=== PATIENT | male | born 1985 | race Two or more races ===

== ENCOUNTER 2018-09-05 01:49 | Emergency (ER) | payer BC, MEDICAID ==
[~2018-09-05] VITALS: Ht 180.3 cm; Wt 81.6 kg
[2018-09-05] MEDS ORDERED: HYDROMORPHONE 2 MG/1 ML DISP.SYRIN ONE (02:24)
[2018-09-05] MEDS ORDERED: ONDANSETRON 4 MG/2 ML VIAL ONE (02:24)
[2018-09-05] MEDS ORDERED: LIDOCAINE HCL 2% 20 ML VIAL TP ONE (02:30)
[2018-09-05] MEDS ORDERED: HYDROMORPHONE 1 MG/1 ML DISP.SYRIN IM ONE (02:30)
[2018-09-05] MEDS ORDERED: ONDANSETRON 4 MG/2 ML VIAL IM ONE (02:30)
--- NOTE | 2018-09-05 02:41 | NUR ---
Pt. ambulated into ED w/ c/o 04/09 pain to R groin, presents w/ 3cm red abscess to R groin x 2 days, no difficulty urinating, denies SOB/CP/STROUD/F/C/N/V/D,
--- NOTE | 2018-09-05 03:52 | NUR ---
Patient discharged to home in stable conditon. Written and verbal after care instructions given. Patient verbalizes understanding of instructions. Pt. d/c per MD order w/ prescription, d/c papers signed, all belongings w/ pt., ambulated off unit w/ steady gait, no acute distress,
== END 2018-09-05 03:54 | disposition home or self-care (01) ==
LOC: ER 01:53
DX: L02.415 Cutaneous abscess of right lower limb (principal); F17.200 Nicotine dependence, unspecified, uncomplicated; F11.10 Opioid abuse, uncomplicated; F14.10 Cocaine abuse, uncomplicated; F15.10 Other stimulant abuse, uncomplicated
CPT/HCPCS: 10060; 96372 ×2; 99283; J1170; J2405; A4663

== ENCOUNTER 2018-09-12 01:40 | Inpatient (IN) | payer BC, MEDICAID ==
[~2018-09-12] VITALS: Ht 180.3 cm; Wt 81.6 kg
--- NOTE | 2018-09-12 01:51 | NUR ---
Pt ambulated in ER with the c/o fever, generalized abdominal pain and headache x 3 days. Pt denies CP, SOB, N/V/D. VSS. Safe environment implemented.
--- NOTE | 2018-09-12 02:02 | NUR ---
Dr. Costa at bedside for MSE.
[2018-09-12] MEDS ORDERED: GENTAMICIN SULFATE INJ 80 MG in IV DEXTROSE 5% 100 ML IV ONE (02:15)
[2018-09-12] MEDS ORDERED: VANCOMYCIN IV 1,000 MG in IV DEXTROSE 5% 250 ML IV ONE (02:15)
[2018-09-12] MEDS ORDERED: DEXAMETHASONE SOD PHOSPHATE 4 MG INJ IV ONE (02:15)
[2018-09-12] MEDS ORDERED: DEXAMETHASONE SOD PHOSPHATE 10 MG INJ ONE (02:26)
[2018-09-12] MEDS ORDERED: GENTAMICIN SULFATE 80 MG/2 ML VIAL ONE ×2 (02:26→03:45)
[2018-09-12] MEDS ORDERED: VANCOMYCIN IV 200 ML ONE (02:27)
[2018-09-12] MEDS ORDERED: KETOROLAC TROMETHAMINE 15 MG INJ ONE (02:41)
[2018-09-12 02:45] LABS: CREATININE 1.7 mg/dL (0.6-1.3); POTASSIUM 4.2 mmol/L (3.5-5.1)
[2018-09-12] MEDS ORDERED: KETOROLAC TROMETHAMINE 15 MG INJ IVP ONE (02:45)
[2018-09-12 02:59] LABS: BILIRUBIN,DIRECT 0.1 mg/dL (0.0-0.2); BILIRUBIN,TOTAL 0.3 mg/dL (0.2-1.0); TOTAL PROTEIN, SERUM 7.9 g/dL (6.4-8.2)
[2018-09-12 03:00] LABS: BASOPHILS % (AUTO) 0.6 % (0.0-2.0); EOSINOPHILS # (AUTO) 0.2 K/uL (0.0-0.7); HEMATOCRIT 42.3 % (36.7-47.1); HEMOGLOBIN 14.8 g/dL (12.5-16.3); LYMPHOCYTES # (AUTO) 0.4 K/uL (20.0-40.0); MEAN CORPUSCULAR HEMOGLOBIN 27.9 uug (23.8-33.4); MEAN CORPUSCULAR HGB CONC 35 g/dL (32.5-36.3); MEAN CORPUSCULAR VOLUME 79.9 fL (73.0-96.2); MONOCYTES # (AUTO) 0.5 K/uL (2.0-10.0); MONOCYTES % (AUTO) 10.1 % (0.0-11.0); NEUTROPHILS # (AUTO) 4.3 K/uL (1.8-8.9); NEUTROPHILS % (AUTO) 79.3 % (38.5-71.5); PLATELET COUNT (AUTO) 123 K/uL (152-348); WHITE BLOOD COUNT (AUTO) 5.4 K/uL (3.6-10.2)
[2018-09-12 03:02] LABS: *BILIRUBIN,URIN NEGATIVE (NEGATIVE); *BLOOD, URINE NEGATIVE (NEGATIVE); *CLARITY,URINE CLEAR (CLEAR); *COLOR,URINE YELLOW (YELLOW); *KETONES,URINE 3+ (NEGATIVE); LEUKOCYTE ESTERASE ,URINE NEGATIVE (NEGATIVE); NITRITE, URINE NEGATIVE (NEGATIVE); UGLUCOSE NEGATIVE (NEGATIVE)
[2018-09-12 03:13] LABS: BACTERIA,URINE NONE SEEN /HPF (NONE SEEN); MUCUS,URINE FEW /LPF (0-FEW); SQUAMOUS EPITHELIAL CELL,UR FEW /HPF (NONE SEEN); WBC,URINE 0-3 /HPF (0-3)
--- NOTE | 2018-09-12 03:13 | NUR ---
Dr. Costa on phone with [facility] .
[2018-09-12] MEDS ORDERED: LEVOFLOXACIN 750 MG TABLET ONE (03:15)
[2018-09-12] MEDS ORDERED: LEVOFLOXACIN 750 MG TABLET PO ONE (03:15)
[2018-09-12] MEDS ORDERED: MAGNESIUM HYDROXIDE 30 ML LIQUID UDC PO PRN (03:30)
[2018-09-12] MEDS ORDERED: ONDANSETRON 4 MG/2 ML VIAL IV PRN (03:30)
[2018-09-12] MEDS ORDERED: ACETAMINOPHEN 325 MG TABLET PO PRN (03:30)
--- NOTE | 2018-09-12 03:55 | NUR ---
Receiving nurse informed of patient's sobriety of 70 days.
--- NOTE | 2018-09-12 03:55 | NUR ---
Report given to Meeta SAN
--- NOTE | 2018-09-12 04:05 | NUR ---
Pt. admitted to M/S , under care of Dr. Ivy Belongs List completed
[2018-09-12 05:00] VITALS: BP 124/65
[2018-09-12] MEDS ORDERED: SULF1TAB48 PO (05:37)
[2018-09-12] MEDS: PANTOPRAZOLE SODIUM 40 MG TABLET.DR PO SCH (06:44)
[2018-09-12] MEDS: HYDROCODONE/APAP 5-325MG TABLET PO PRN ×3 (06:45→21:04)
--- NOTE | 2018-09-12 06:56 | NUR ---
ADMITTED 33M. DX: FEBRILE ILLNESS. IV ON THE LEFT AC IS INTACT AND PATENT. PRN PAIN MEDICATIONS GIVEN AND TOLERATED WELL. NO SIGNS OF ACUTE DISTRESS. SAFETY MEASURES GIVEN.
--- NOTE | 2018-09-12 08:00 | NUR ---
Noted right groin wound with redness. Scant drainage of serous fluid. No odor noted. Offered to cover small wound -pt refused.
--- NOTE | 2018-09-12 08:00 | NUR ---
Pt is in no acute distress. Discussed plan of care with pt re: pain management, fall precaution. Call light is within reach.
[2018-09-12 11:16] VITALS: BP 124/66
[2018-09-12 12:17] LABS: CREATININE 1.9 mg/dL (0.6-1.3); POTASSIUM 5.2 mmol/L (3.5-5.1)
[2018-09-12] MEDS: NICOTINE 21 MG/24HR PATCH TD SCH (15:04)
[2018-09-12 15:24] VITALS: BP 134/81
[2018-09-12] MEDS: IV NS 1000 ML 1,000 ML IV PRN (17:25)
--- NOTE | 2018-09-12 18:53 | NUR ---
Pt has been afebrile throughout shift. Call light is within reach.
--- NOTE | 2018-09-12 19:25 | NUR ---
RECEIVED PT AWAKE. ALERT AND ORIENTEDX4. PT SHOWS NO SIGNS OF ACUTE DISTRESS. PT IV INTACT AND PATENT. PT AFEBRILE. CALL LIGHT WITHIN REACH. BED ALARM ON AND IN LOW POSITION. SAFETY AND COMFORT PROVIDED. WILL CONTINUE TO MONITOR.
[2018-09-12 20:05] VITALS: BP 128/80
--- NOTE | 2018-09-13 00:43 | NUR ---
CALLED DR CANE LOADER. PT REQUESTING FOR SLEEPING MEDICATION. DR. SAÚL LEMONSDERED AMBIEN 5MG ONCE. PT STABLE WITH NO ACUTE DISTRESS. WILL CONTINUE TO MONITOR.
[2018-09-13] MEDS ORDERED: ZOLPIDEM 5 MG TABLET PO ONE (00:45)
[2018-09-13 01:07] LABS: *BILIRUBIN,URIN NEGATIVE (NEGATIVE); *BLOOD, URINE NEGATIVE (NEGATIVE); *COLOR,URINE YELLOW (YELLOW); *KETONES,URINE TRACE (NEGATIVE); LEUKOCYTE ESTERASE ,URINE NEGATIVE (NEGATIVE); NITRITE, URINE NEGATIVE (NEGATIVE); PH,URINE 6.5 (5.0-8.0)
[2018-09-13 01:09] LABS: *CLARITY,URINE HAZY (CLEAR); UGLUCOSE 1+ (NEGATIVE)
[2018-09-13 01:20] LABS: BACTERIA,URINE NONE SEEN /HPF (NONE SEEN); RBC,URINE 0-3 /HPF (0-3); SQUAMOUS EPITHELIAL CELL,UR FEW /HPF (NONE SEEN); WBC,URINE 0-3 /HPF (0-3)
[2018-09-13 01:21] LABS: MUCUS,URINE FEW /LPF (0-FEW); TRANSITIONAL EPI CELLS,URINE FEW /LPF (NONE SEEN)
[2018-09-13 01:23] LABS: *CREATININE,URINE 182.1 mg/dL (30-125); *URINE TOTAL PROTEIN RANDOM 34.7 mg/dL (<150/24HR)
[2018-09-13 05:15] VITALS: BP 119/72
[2018-09-13 06:00] LABS: BASOPHILS % (AUTO) 0.5 % (0.0-2.0); EOSINOPHILS # (AUTO) 0.3 K/uL (0.0-0.7); EOSINOPHILS % (AUTO) 8.4 % (0.0-7.0); HEMATOCRIT 41.4 % (36.7-47.1); HEMOGLOBIN 14.3 g/dL (12.5-16.3); LYMPHOCYTES # (AUTO) 0.7 K/uL (20.0-40.0); LYMPHOCYTES % (AUTO) 22.2 % (20.5-51.5); MEAN CORPUSCULAR HEMOGLOBIN 27.9 uug (23.8-33.4); MEAN CORPUSCULAR HGB CONC 34 g/dL (32.5-36.3); MEAN CORPUSCULAR VOLUME 80.9 fL (73.0-96.2); MONOCYTES # (AUTO) 0.5 K/uL (2.0-10.0); MONOCYTES % (AUTO) 14.1 % (0.0-11.0); NEUTROPHILS # (AUTO) 1.8 K/uL (1.8-8.9); NEUTROPHILS % (AUTO) 54.8 % (38.5-71.5); PLATELET COUNT (AUTO) 111 K/uL (152-348); RED BLOOD CELL COUNT(AUTO) 5.11 MIL/uL (4.06-5.63)
[2018-09-13] MEDS ORDERED: LEVOFLOXACIN 750MG/D5W 750 MG in PREMIXED 1 EACH IV SCH (06:00)
[2018-09-13] MEDS: IV NS 1000 ML 1,000 ML IV PRN ×2 (06:05→08:39)
[2018-09-13 06:10] LABS: BILIRUBIN,TOTAL 0.2 mg/dL (0.2-1.0); CREATININE 1.4 mg/dL (0.6-1.3); MAGNESIUM 1.8 mg/dL (1.8-2.4); PHOSPHOROUS 3.1 mg/dL (2.5-4.9); POTASSIUM 4.3 mmol/L (3.5-5.1); TOTAL PROTEIN, SERUM 6.9 g/dL (6.4-8.2)
--- NOTE | 2018-09-13 06:16 | NUR ---
PT SLEPT INTERMITTENTLY. PT SHOWS NO ACUTE DISTRESS.IV INTACT AND PATENT.PT GIVEN NORCO FOR PAIN. PT TOLERATED IT WELL. PT AFEBRILE. PT VITAL SIGNS WITHIN NORMAL LIMIT. SAFETY AND COMFORT PROVIDED.WILL ENDORSE ACCORDINGLY TO INCOMING NURSE FOR CONTINUITY OF CARE.
[2018-09-13 06:35] LABS: URIC ACID 3.7 mg/dL (3.5-7.2)
[2018-09-13 06:37] LABS: WHITE BLOOD COUNT (AUTO) 3.3 K/uL (3.6-10.2)
[2018-09-13] MEDS: PANTOPRAZOLE SODIUM 40 MG TABLET.DR PO SCH (06:41)
--- NOTE | 2018-09-13 06:43 | NUR ---
PT REFUSED TO HAVE HIS IV FLUID BAG REPLACED FOR A NEW ONE. CHARGE NURSE AWARE. PT STABLE. SAFETY AND COMFORT PROVIDED. WILL ENDORSE ACCORDINGLY TO INCOMING NURSE FOR CONTINUITY OF CARE.
[2018-09-13 07:07] LABS: THYROID STIMULATING HORMONE 4.94 mIU/mL (0.358-3.740)
--- NOTE | 2018-09-13 08:40 | NUR ---
Patient due for New IV hydration bag, refused verbalized he does not need it.
[2018-09-13] MEDS: NICOTINE 21 MG/24HR PATCH TD SCH (08:52)
--- NOTE | 2018-09-13 08:52 | NUR ---
patient noted to have contraband items in room, cigarette fnp and 2 cigarettes, patient educated, removed items and placed in contraband, informed patient will be returned on discharge.
[2018-09-13 11:09] VITALS: BP 119/73
[2018-09-13 11:30] VITALS: BP 119/73
--- NOTE | 2018-09-13 11:42 | NUR ---
Notified Web Development Intern Oanh Fay, N.P. of patient refusal for IV hydration, no longer wants it refusing, per spinning bath person may discontinue IV hydration.
[2018-09-13 14:58] VITALS: BP 100/60
[2018-09-13 15:04] VITALS: BP 100/60
--- NOTE | 2018-09-13 19:30 | NUR ---
Received pt in up in bed, awake, alert and oriented x4. Discussed and reviewed plan of care with pt, pt cooperative. Heating pad placed on right inner thigh as directed. IV intact and patent. Pt denies pain, dizziness or SOB. No acute distress noted. Safety precautions in place, will continue to monitor.
[2018-09-13 20:00] VITALS: BP 115/73
[2018-09-14 06:08] VITALS: BP 100/50
--- NOTE | 2018-09-14 06:27 | NUR ---
Pt slept well t/o the night. No fever noted on shift. VS stable. Denies pain, dizziness or chills. Offered warm compress during the night, pt refused. No acute distress noted. Safety precautions in place, call light within reach. Will endorse plan of care to day shift nurse.
[2018-09-14] MEDS: PANTOPRAZOLE SODIUM 40 MG TABLET.DR PO SCH (06:31)
[2018-09-14] MEDS: NICOTINE 21 MG/24HR PATCH TD SCH (08:44)
--- NOTE | 2018-09-14 08:49 | NUR ---
PATIENT LAYING IN BED SLEEPING, EASILY AROUSABLE. NO SIGNS OF DISTRESS NOTED. PATIENT IS ALERT AND ORIENTED X4. APPLIED NICOTINE PATCH ON RIGHT UPPER ARM, PATIENT REPORTED PREVIOUS PATCH FELL OFF OF LEFT UPPER ARM AND WAS DISCARDED. ALL NEEDS ATTENDED, WILL CONTINUE TO MONITOR.
[2018-09-14 11:55] VITALS: BP 123/74
--- NOTE | 2018-09-14 14:10 | NUR ---
patient discharged, left ambulatory accompanied and picked up by [facility]. stable. wristband and IV removed.
== END 2018-09-14 14:10 | disposition home or self-care (01) | DRG 720 ==
LOC: ER 01:41 → MED 03:59
PROVIDERS: ATTEND Nurse Practitioner Acute Care
DX: A41.9 Sepsis, unspecified organism (principal); N17.0 Acute kidney failure with tubular necrosis; D69.6 Thrombocytopenia, unspecified; L02.214 Cutaneous abscess of groin; E87.1 Hypo-osmolality and hyponatremia; E86.0 Dehydration; L02.415 Cutaneous abscess of right lower limb; F17.210 Nicotine dependence, cigarettes, uncomplicated; F10.11 Alcohol abuse, in remission; F19.11 Other psychoactive substance abuse, in remission; Y90.9 Presence of alcohol in blood, level not specified; R31.9 Hematuria, unspecified; T37.0X5A Adverse effect of sulfonamides, initial encounter; Y92.099 Unspecified place in other non-institutional residence as the place of occurrence of the external cause; K57.30 Diverticulosis of large intestine without perforation or abscess without bleeding; I10 Essential (primary) hypertension
CPT/HCPCS: 36415; 70030-TC; 71045; 72192; 83605; 83735; 83970; 84100; 84156; 84300; 84443; 84550; 85025; 85730; 86403; 87040; 87070; 87086; 87400; 93005; 93307; A4663; G0378; J1100; J1580; J1885; J1956; J3370; J7030; J7060